=== PATIENT | male | born 1960 | race Caucasian/White ===

== ENCOUNTER 2025-03-28 09:52 | Outpatient (RCR) | payer MEDICARE, SELFPAY ==
[2025-03-28] VITALS (7 sets, daily range): BP systolic 92–113; BP diastolic 54–76
[2025-03-28] MEDS: TYLENOL 650 MG PO (11:02)
== END 2025-03-28 23:59 | disposition home or self-care (01) ==
LOC: OID 09:52
PROVIDERS: ATTENDING PHYSICIAN Internal Medicine Hematology & Oncology
DX: C44.229 Squamous cell carcinoma of skin of left ear and external auricular canal (principal)
CPT/HCPCS: 36415; 36430; 86850; 86900; 86901; 86920; P9016